=== PATIENT | female | born 1980 | race Caucasian/White ===

== ENCOUNTER 2017-05-29 14:11 | Observation (INO) | payer BC ==
[~2017-05-29] VITALS: Ht 162.6 cm; Wt 81.5 kg
[2017-05-29 15:38] VITALS: BP 141/95; PULSE 103; TEMP 98.3
[2017-05-29] MEDS ORDERED: SYNTHROID0.075 MG/T PO (16:12)
[2017-05-29] MEDS ORDERED: XANAX 0.5MG0.5 MG PO (16:13)
[2017-05-29 17:25] LABS: BASO % 0.5 % (0.0-2.0); EOS # 0.1 (0.0-0.7); EOS % 0.8 % (0-4.0); GRAN # 4.6 (1.4-6.5); GRAN % 58.6 % (42.2-75.2); HEMATOCRIT 38.6 % (37.0-47.0); HEMOGLOBIN 13.1 g/dl (12.5-16.0); LYMPH # 2.4 (1.2-3.4); LYMPH % 30.7 % (20.0-51.0); MEAN CELL VOLUME 103 fl (80.0-100.0); MEAN CORPUSCULAR HEMOGLOBIN 35 pg (27.0-31.0); MEAN CORPUSCULAR HGB CONC 34 g/dl (33.0-37.0); MEAN PLATELET VOLUME 9.3 fl (7.4-10.4); MONO # 0.7 (0.1-0.6); PLATELET COUNT 208 K/mm3 (130-400); RED BLOOD COUNT 3.76 M/mm3 (4.10-5.30); WHITE BLOOD COUNT 7.9 K/mm3 (4.8-10.8)
[2017-05-29 17:47] LABS: ADJUSTED CALCIUM 8.9 mg/dL (8.4-10.2); ALBUMIN 4.4 gm/dL (3.5-5.0); BILIRUBIN,TOTAL 1.6 mg/dL (0.0-1.0); CALCIUM 9.2 mg/dL (8.4-10.2); CREATININE, serum 0.56 mg/dL (0.52-1.25); POTASSIUM 3.6 mmol/L (3.4-5.0); TOTAL PROTEIN 7.9 gm/dL (6.4-8.2)
[2017-05-29 20:53] VITALS: BP 108/68; PULSE 71; TEMP 97.2
[2017-05-30 02:02] VITALS: BP 119/65; PULSE 67; TEMP 98.3
[2017-05-30 06:02] VITALS: BP 102/60; PULSE 61; TEMP 97.9
[2017-05-30 07:38] LABS: BASO % 0.7 % (0.0-2.0); EOS # 0.1 (0.0-0.7); EOS % 2.4 % (0-4.0); GRAN # 3.1 (1.4-6.5); GRAN % 51.9 % (42.2-75.2); HEMOGLOBIN 12.2 g/dl (12.5-16.0); LYMPH # 2.1 (1.2-3.4); LYMPH % 34.6 % (20.0-51.0); MEAN CELL VOLUME 104 fl (80.0-100.0); MEAN CORPUSCULAR HEMOGLOBIN 35 pg (27.0-31.0); MEAN CORPUSCULAR HGB CONC 34 g/dl (33.0-37.0); MEAN PLATELET VOLUME 9.4 fl (7.4-10.4); MONO # 0.6 (0.1-0.6); MONO % 9.9 % (1.7-9.3); PLATELET COUNT 191 K/mm3 (130-400); RED BLOOD COUNT 3.47 M/mm3 (4.10-5.30); REDCELL DISTRIBUTION WIDTH-CV 14.1 % (11.5-14.5)
[2017-05-30 07:40] LABS: HEMATOCRIT 36.2 % (37.0-47.0)
[2017-05-30 07:42] LABS: ADJUSTED CALCIUM 8.9 mg/dL (8.4-10.2); ALBUMIN 3.8 gm/dL (3.5-5.0); BILIRUBIN,TOTAL 1.5 mg/dL (0.0-1.0); CALCIUM 8.7 mg/dL (8.4-10.2); CREATININE, serum 0.64 mg/dL (0.52-1.25); POTASSIUM 3.2 mmol/L (3.4-5.0); TOTAL PROTEIN 6.9 gm/dL (6.4-8.2)
[2017-05-30 08:50] VITALS: BP 122/75; PULSE 64; TEMP 97
[2017-05-30 13:38] VITALS: BP 122/80; PULSE 63; TEMP 97.9
== END 2017-05-30 15:43 | disposition home or self-care (01) ==
LOC: COL.RAD 14:11 → SURG 15:30
PROVIDERS: Surgery
DX: K57.30 Diverticulosis of large intestine without perforation or abscess without bleeding (principal); E03.9 Hypothyroidism, unspecified; Z87.440 Personal history of urinary (tract) infections
CPT/HCPCS: G0378; J2543; J7042; J7050; Q9967

== ENCOUNTER 2020-08-15 09:38 | Emergency (ER) | payer BC ==
[~2020-08-15] VITALS: Ht 162.6 cm; Wt 72.7 kg
[~2020-08-15 09:38] MED LIST: SYNTHROID0.075 MG/T PO; XANAX 0.5MG0.5 MG PO
[2020-08-15 09:44] VITALS: TEMP 98.1
[2020-08-15 10:19] LABS: COLLECTION METHOD CLEAN CATCH
[2020-08-15] MEDS ORDERED: SETLAKIN 0.151 EACH PO (10:20)
[2020-08-15 10:22] LABS: BASO # 0.1 (0.0-0.2); BASO % 0.6 % (0.0-2.0); EOS # 0.2 (0.0-0.7); EOS % 1.1 % (0-4.0); GRAN # 10.3 (1.4-6.5); HEMATOCRIT 41.5 % (37.0-47.0); HEMOGLOBIN 13.8 g/dl (12.5-16.0); LYMPH # 2.4 (1.2-3.4); LYMPH % 17.2 % (20.0-51.0); MEAN CELL VOLUME 99 fl (80.0-100.0); MEAN CORPUSCULAR HEMOGLOBIN 33 pg (27.0-31.0); MEAN CORPUSCULAR HGB CONC 33 g/dl (33.0-37.0); MEAN PLATELET VOLUME 9.2 fl (7.4-10.4); MONO # 0.8 (0.1-0.6); MONO % 5.7 % (1.7-9.3); PLATELET COUNT 368 K/mm3 (130-400); RED BLOOD COUNT 4.19 M/mm3 (4.10-5.30); REDCELL DISTRIBUTION WIDTH-CV 12.9 % (11.5-14.5)
[2020-08-15 10:33] LABS: ALBUMIN 4.5 gm/dL (3.5-5.0); BILIRUBIN,TOTAL 0.6 mg/dL (0.0-1.0); CALCIUM 9.3 mg/dL (8.4-10.2); CREATININE, serum 0.65 (0.52-1.25); POTASSIUM 3.9 mmol/L (3.4-5.0); TOTAL PROTEIN 7.9 gm/dL (6.4-8.2)
[2020-08-15 11:04] LABS: PH 6 (5-8); SQUAMOUS EPITHELIAL None Seen /hpf; URINE APPEARANCE Cloudy; URINE BACTERIA Moderate /hpf; URINE BILIRUBIN Negative (NEGATIVE); URINE BLOOD 2+ (NEGATIVE); URINE COLOR Yellow; URINE GLUCOSE Negative (NEGATIVE); URINE KETONE Negative (NEGATIVE); URINE LEUKOCYTE ESTERASE 3+ (NEGATIVE); URINE NITRATE Positive (NEGATIVE); URINE PROTEIN(semi-quant) 2+ (NEGATIVE); URINE RBC >50 /hpf; URINE UROBILINOGEN Negative (NEGATIVE)
[2020-08-15] MEDS ORDERED: CIPRO 500MG TA500 MG PO (12:04)
[2020-08-15] MEDS ORDERED: PYRIDIUM200 M1 PO (12:04)
[2020-08-15 12:10] VITALS: BP 140/91; PULSE 93
== END 2020-08-15 12:14 | disposition home or self-care (01) ==
LOC: COL.ER 09:38
PROVIDERS: Emergency Medicine
DX: N30.90 Cystitis, unspecified without hematuria (principal); N28.89 Other specified disorders of kidney and ureter; E03.9 Hypothyroidism, unspecified; Z88.2 Allergy status to sulfonamides; Z79.890 Hormone replacement therapy
CPT/HCPCS: J0696; J1885; J7030